=== PATIENT | female | born 1970 | race Caucasian/White ===

== ENCOUNTER 2019-06-01 13:58 | Emergency (ER) | payer SELFPAY ==
[~2019-06-01] VITALS: Ht 172.7 cm; Wt 113.6 kg
[2019-06-01 14:05] VITALS: Ht 172.7 cm; Wt 113.6 kg
[2019-06-01 14:47] LABS: BASOPHILS 0.3 % (0-2); EOSINOPHILS 2.7 % (0-7); HEMATOCRIT 43.3 % (36.0-48.0); HEMOGLOBIN 15.1 g/dL (12-16); IMMATURE GRANULOCYTES 0.3 % (0-5); LYMPHOCYTES 49.9 % (15-50); MCH 31.1 pg (26.0-34.0); MCHC 34.9 g/dL (31.0-37.0); MCV 89.1 fL (80.0-100.0); MEAN PLATELET VOLUME 9.8 fL (7.4-10.4); MONOCYTES 9.7 % (2-11); NEUTROPHILS 37.1 % (40-80); PLATELET COUNT 219 10x3/uL (130-400); RBC 4.86 10x6/uL (4.00-5.40); RDW 12.7 % (11.5-14.5); WBC 7.4 10x3/uL (4.8-10.8)
[2019-06-01 15:00] LABS: CALC OSMOLALITY 278 mosm/kg (275-300); CALCIUM 9.2 mg/dL (8.5-10.1); CARBON DIOXIDE 26.5 mmol/L (21.0-32.0); CHLORIDE - SERUM 102 mmol/L (98-107); CREATININE - SERUM 1.2 mg/dL (0.6-1.3); GLUCOSE 190 mg/dL (74-106); POTASSIUM - SERUM 3.6 mmol/L (3.5-5.1); SODIUM 136 mmol/L (136-145); UREA NITROGEN 19 mg/dL (7-18); eGFR NON AFRICAN AMERICAN 51 mL/min (90-120)
[2019-06-01 15:16] LABS: ALBUMIN 3.7 g/dL (3.4-5.0); ALKALINE PHOSPHATASE 128 U/L (30-120); ALT (SGPT) 51 U/L (10-68); BILIRUBIN - TOTAL 0.26 mg/dL (0.2-1.3); CKMB 0.6 U/L (0.0-3.6); CREATINE KINASE 195 UL (21-215); PROTEIN - SERUM 8.5 g/dL (6.4-8.2); TROPONIN-I < 0.017 ng/mL (0.000-0.060)
[2019-06-01 15:26] LABS: INR 0.96 (0.85-1.17); PROTIME 12.7 SECONDS (11.6-15.0)
[2019-06-01 15:27] LABS: APTT 27.9 SECONDS (22.8-39.4)
[2019-06-01 17:44] LABS: CKMB 0.5 U/L (0.0-3.6); CREATINE KINASE 162 UL (21-215); TROPONIN-I < 0.017 ng/mL (0.000-0.060)
[2019-06-01] MEDS ORDERED: ALBUTEROL SULF8.5 GM INH (18:17)
[2019-06-01] MEDS ORDERED: FLOVENT HFA 22012 GM INH (18:17)
[2019-06-01 18:35] VITALS: BP 133/80
== END 2019-06-01 18:42 | disposition home or self-care (01) ==
LOC: D.ER 13:58
PROVIDERS: Family Medicine
DX: E86.0 Dehydration (principal); J45.909 Unspecified asthma, uncomplicated; R07.89 Other chest pain; I10 Essential (primary) hypertension; R06.2 Wheezing